=== PATIENT | female | born 1970 | race American Indian/Alaskan Native ===

== ENCOUNTER 2020-07-30 12:38 | Emergency (ER) | payer OTHER, BC ==
[2020-07-30 12:47] VITALS: BP 143/86
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
== END 2020-07-30 15:07 | disposition home or self-care (01) ==
LOC: ED 12:38
DX: M25.511 Pain in right shoulder (principal); M17.11 Unilateral primary osteoarthritis, right knee; M79.672 Pain in left foot; Z91.018 Allergy to other foods; Z79.899 Other long term (current) drug therapy; V89.0XXA Person injured in unspecified motor-vehicle accident, nontraffic, initial encounter; Y93.89 Activity, other specified; Y92.89 Other specified places as the place of occurrence of the external cause; Y99.8 Other external cause status
CPT/HCPCS: 99283